=== PATIENT | male | born 1970 | race Caucasian/White ===

== ENCOUNTER 2016-08-31 16:56 | Outpatient (CLI) | payer OTHER ==
--- NOTE | 2016-09-01 07:30 | RAD ---
THREE VIEWS LEFT ANKLE: History: Left ankle sprain. FINDINGS: AP, lateral, and oblique views of the ankle demonstrate no evidence of left ankle fractures, subluxa tions, or bony lesions. IMPRESSION: Normal three views left ankle. POS: [facility]
== END 2016-08-31 16:57 | disposition home or self-care (01) ==
LOC: NAV RAD 16:56
DX: S93.492A Sprain of other ligament of left ankle, initial encounter (principal)

== ENCOUNTER 2017-01-22 08:11 | Outpatient (CLI) | payer OTHER ==
[2017-01-22 10:25] LABS: Cardiac Risk 3.7 (Less than 4.5)
== END 2017-01-22 08:12 | disposition home or self-care (01) ==
LOC: NAVSJIPCSP 08:11 → NAV LAB 08:12
PROVIDERS: ATTEND Internal Medicine
DX: E78.5 Hyperlipidemia, unspecified (principal); Z79.899 Other long term (current) drug therapy
CPT/HCPCS: 80061

== ENCOUNTER 2024-06-20 10:38 | Outpatient (CLI) | payer OTHER | END 2024-06-20 10:39 | disposition home or self-care (01) | LOC: NAV EKG 10:38 | PROVIDERS: ATTEND Nurse Practitioner Family | DX: R07.9 Chest pain, unspecified (principal) | CPT/HCPCS: 93005; 93010 ==